=== PATIENT | female | born 1950 | race Caucasian/White ===

== ENCOUNTER 2017-01-03 11:49 | Emergency (ER) | payer BC ==
--- NOTE | 2017-01-03 12:18 | ERPHSYRPT ---
- History of Present Illness Time Seen by Provider: 01/03/17 12:10 Historian: patient Exam Limitations: no limitations Patient Subjective Stated Complaint: pt arrived from [facility]. nurse advised she is concernred pt may have an incarcerated bowel due to a hernia. pt states she only has abdominal pain upon palpation and straining to have a bm. Triage Nursing Assessment: pt pink, warm, dry. abdomen obese tender to touch. pt afebrile. bowel sounds present in all 4 quads. hypoactive. Physician History: 66-year-old white female arrives with complaint of unable to have a bowel movement for several days. She states she's been constipated for several days. Patient having periumbilical tenderness. Patient states having problems having bowel movements for about 2-3 weeks. No vomiting. Patient was seen by a nurse practitioner at [facility] and felt to have lobe possible entrapped hernia. Past medical history patient denies. Past surgical history patient denies. Patient had a small fat filled hernia in the periumbilical region on CT scan one year ago. Timing/Duration: day(s) (2-3 days) Activities at Onset: none Quality: cramping Abdominal Pain Onset Location: periumbilical Pain Radiation: no radiation Severity of Pain-Max: moderate Severity of Pain-Current: moderate Modifying Factors: Improves With: nothing Associated Symptoms: other (1 complex with constipati), No back, No chest pain, No diaphoresis, No diarrhea, No fever/chills, No fatigue, No headache, No heartburn, No loss of appetite, No nausea, No neck pain, No rash, No shortness of breath, No syncope, No vomiting, No weakness Previous symptoms: other (patient seen at [facility] today) Allergies/Adverse Reactions: No Known Drug Allergies Allergy (Unverified 01/03/17 12:07) Home Medications: No Reportable Medications [No Reported Medications] 01/03/17 [History] Hx Tetanus, Diphtheria Vaccination/Date Given: Yes (unknown) Hx Influenza Vaccination/Date Given: No Hx Pneumococcal Vaccination/Date Given: No Immunizations Up to Date: Yes - Review of Systems Constitutional: No Fever, No Chills Eyes: No Symptoms Ears, Nose, & Throat: No Symptoms Respiratory: No Cough, No Dyspnea Cardiac: No Chest Pain, No Edema, No Syncope Abdominal/Gastrointestinal: Abdominal Pain, Constipation, No Nausea, No Vomiting , No Diarrhea, No Hematemesis, No Hematochezia, No Melena, No Dysphagia, No Appetite Changes Genitourinary Symptoms: No Dysuria Musculoskeletal: No Back Pain, No Neck Pain Skin: No Rash Neurological: No Dizziness, No Focal Weakness, No Sensory Changes Psychological: No Symptoms Endocrine: No Symptoms All Other Systems: Reviewed and Negative - Past Medical History Pertinent Past Medical History: No - Past Surgical History Past Surgical History: No - Social History Smoking Status: Never smoker Exposure to second hand smoke: No Drug Use: none Patient Lives Alone: No - Nursing Vital Signs Nursing Vital Signs: Initial Vital Signs Temperature 98.6 F 01/03/17 12:01 Pulse Rate 86 01/03/17 12:01 Respiratory Rate 18 01/03/17 12:01 Blood Pressure 162/74 01/03/17 12:01 O2 Sat by Pulse Oximetry 100 01/03/17 12:01 Pain Scale Pain Intensity 0 - Physical Exam General Appearance: no apparent distress, alert Eye Exam: PERRL/EOMI, eyes nml inspection Ears, Nose, Throat Exam: normal ENT inspection, pharynx normal, moist mucous membranes Neck Exam: normal inspection, non-tender, supple, full range of motion Respiratory Exam: normal breath sounds, lungs clear, No respiratory distress Cardiovascular Exam: regular rate/rhythm, normal heart sounds Gastrointestinal/Abdomen Exam: soft, normal bowel sounds, tenderness (minimal periumbilical tenderness) Back Exam: normal inspection, normal range of motion, No CVA tenderness, No vertebral tenderness Extremity Exam: normal inspection, normal range of motion, pelvis stable Neurologic Exam: alert, oriented x 3, cooperative, normal mood/affect, nml cerebellar function, sensation nml, No motor deficits Skin Exam: normal color, warm, dry SpO2 Interpretation: normal (100%) SpO2: 100 Oxygen Delivery: Room Air - Course Nursing assessment & vital signs reviewed: Yes - CT Exams Abdomen/Pelvis CT Interpretation: Discussed w/radiologist (CT of the abdomen and pelvis with contrast: 1. No acute process within the abdomen or pelvis. 2. 2 components of a supra umbilical omental fat ventral hernia. This extends in the midline and to the left of midline. The midline component measures 5.1 cm in diameter and the components extending to the left of midline measures 5.8 cm in diameter. This is larger than that seen on June 29, 2015. Again, no bowel containing ventral hernia or bowel obstruction is seen. 3. Minimal hiatal hernia, several hepatic cysts, hepatic steatosis, cholelithiasis and a right adrenal gland adenoma are again seen representing no significant change from June 29, 2015. 4. No other significant abnormality is seen, specifically, no suspicious colonic findings by CT. Consider colonoscopy if the patient has not had a recent colonoscopy exam. There is mild scattered fecal residue seen) Ordered Tests: Active Orders 24 hr Category Date Time Status ABDOMEN AND PELVIS W CONTRAST [CT] Stat Exams 01/03/17 12:55 Completed AMYLASE Stat Lab 01/03/17 12:26 Completed CBC W DIFF Stat Lab 01/03/17 12:55 Completed CMP Stat Lab 01/03/17 12:27 Completed LIPASE Stat Lab 01/03/17 12:26 Completed Lab/Rad Data: Laboratory Result Diagrams 01/03/17 12:55 01/03/17 12:27 Laboratory Results 01/03/17 01/03/17 01/03/17 Range/Units 12:55 12:27 12:26 WBC 5.0 (4.0-10.5) K/mm3 RBC 5.19 (4.1-5.4) M/mm3 Hgb 14.2 (12.0-16.0) gm/dl Hct 45.2 (35-47) % MCV 87.1 (78-100) fl MCH 27.4 (26-32) pg MCHC 31.4 L (32-36) g/dl RDW 13.2 (11.5-14.0) % Plt Count 200 (150-450) K/mm3 MPV 12.0 H (6-9.5) fl Gran % 58.3 (36.0-66.0) % Lymphocytes % 29.0 (24.0-44.0) % Monocytes % 9.3 (0.0-12.0) % Eosinophils % 2.8 (0.00-5.0) % Basophils % 0.6 (0.0-0.4) % Basophils # 0.03 (0-0.4) Sodium 141 (136-145) mEq/L Potassium 3.9 (3.5-5.1) mEq/L Chloride 104 (98-107) mEq/L Carbon Dioxide 25.9 (21-32) mEq/L Anion Gap 14.6 (5-15) MEQ/L BUN 8 L (9-20) mg/dL Creatinine 0.94 (0.55-1.30) mg/dl Estimated GFR > 60 ML/MIN Glucose 112 H (70-110) MG/DL Calcium 9.7 (8.5-10.1) mg/dL Total Bilirubin 0.70 (0.2-1.0) mg/dL AST 30 (15-37) U/L ALT 32 (12-78) U/L Alkaline Phosphatase 92 (46-116) U/L Serum Total Protein 8.3 H (6.4-8.2) gm/dL Albumin 4.4 (3.4-5.0) g/dL Amylase (25-115) U/L Lipase 131 (73-393) U/L 01/03/ Range/Units 12:26 WBC (4.0-10.5) K/mm3 RBC (4.1-5.4) M/mm3 Hgb (12.0-16.0) gm/dl Hct (35-47) % MCV (78-100) fl MCH (26-32) pg MCHC (32-36) g/dl RDW (11.5-14.0) % Plt Count (150-450) K/mm3 MPV (6-9.5) fl Gran % (36.0-66.0) % Lymphocytes % (24.0-44.0) % Monocytes % (0.0-12.0) % Eosinophils % (0.00-5.0) % Basophils % (0.0-0.4) % Basophils # (0-0.4) Sodium (136-145) mEq/L Potassium (3.5-5.1) mEq/L Chloride (98-107) mEq/L Carbon Dioxide (21-32) mEq/L Anion Gap (5-15) MEQ/L BUN (9-20) mg/dL Creatinine (0.55-1.30) mg/dl Estimated GFR ML/MIN Glucose (70-110) MG/DL Calcium (8.5-10.1) mg/dL Total Bilirubin (0.2-1.0) mg/dL AST (15-37) U/L ALT (12-78) U/L Alkaline Phosphatase (46-116) U/L Serum Total Protein (6.4-8.2) gm/dL Albumin (3.4-5.0) g/dL Amylase 40 (25-115) U/L Lipase (73-393) U/L - Progress Progress: improved Progress Note: 01/03/17 15:25 This is a 66-year-old white female who had a known small fat-containing umbilical hernia who presented to outpatient clinic with complaints that she had not had a stool for 4 days and had been having constipation off and on for 3 -4 weeks. She has some mild supraumbilical tenderness but really is in no discomfort on arrival. She was noted at the clinic to have a palpable hernia was concerned that she might have a bowel herniation with possible entrapment she was sent to the emergency room on arrival patient's abdomen is distended bowel sounds are positive she has mild supraumbilical tenderness. Because of the patient's obesity I had a hard time palpating her hernia. Patient was sent to CT. Patient had CT with contrast abdomen and pelvis she has a small hiatal hernia which she has had she has PUPIL hepatic cysts with have been seen in the past she also has a large gallstone which is also been seen in the past she does have a hernia superior to the umbilicus however this contains fat and there is no bowel herniation. Patient has no sign of obstruction. Patient has not been vomiting . She is really not tender at this time. She is concerned over constipation I did not feel any hard stool on rectal examination. We will go ahead and place patient on room air laxative and Dulcolax suppositories plenty of fluids with clear fluids only 24-48 hours if abdominal pain patient is to follow-up with her family doctor. - Departure Time of Disposition: 15:32 Departure Disposition: Home Clinical Impression: fat-containing umbilical hernia Constipation Qualifiers: Constipation type: unspecified constipation type Qualified Code(s): K59.00 - Constipation, unspecified Abdominal pain Qualifiers: Abdominal location: periumbilical Qualified Code(s): R10.33 - Periumbilical pain Condition: Stable Critical Care Time: No Referrals: GREER DAVID MD [Primary Care Provider] - Instructions: Abdominal Pain-Adult Additional Instructions: Return home. Plenty of fluids. Clear fluids only 24-48 hours if abdominal pain. Khushi lax 255 g one scoop in 8 ounces of water orally daily. Dulcolax suppository one rectally 48 hours as needed for no stool in 48 hours. Follow-up with your family doctor. Return for acute distress or for severe symptoms.
[2017-01-03 12:52] LABS: ALBUMIN 4.4 g/dL (3.4-5.0); ALKALINE PHOSPHATASE 92 U/L (46-116); ANION GAP 14.6 MEQ/L (5-15); BLOOD UREA NITROGEN 8 mg/dL (9-20); CHLORIDE 104 mEq/L (98-107); Carbon Dioxide 25.9 mEq/L (21-32); Glucose 112 MG/DL (70-110); Potassium 3.9 mEq/L (3.5-5.1); SGOT/AST 30 U/L (15-37); SGPT/ALT 32 U/L (12-78); SODIUM 141 mEq/L (136-145); Total Protein 8.3 gm/dL (6.4-8.2)
[2017-01-03 12:59] LABS: BASOPHIL % 0.6 % (0.0-0.4); Eosinophil % 2.8 % (0.00-5.0); Granulocytes % 58.3 % (36.0-66.0); Mean Cell Volume 87.1 fl (78-100); Mean Corpuscular Hemoglobin 27.4 pg (26-32); Monocytes % 9.3 % (0.0-12.0); Platelet Count 200 K/mm3 (150-450); Red Blood Count 5.19 M/mm3 (4.1-5.4); Red Cell Distribution Width 13.2 % (11.5-14.0)
[2017-01-03 15:32] VITALS: O2SAT 100
[2017-01-03 15:38] VITALS: BP 130/70; PULSE 86
--- NOTE | 2017-01-03 15:54 | XRAY ---
CT of the abdomen and pelvis with IV contrast from 01/03/2017. CTDI: 23.68 Comparison: CT of the abdomen and pelvis without IV contrast from 06/29/2015. Indication: Patient complains of difficulty with defecation and painful defecation times years, but worse in past 3 weeks. Technique: Post-IV contrast axial images were obtained through the abdomen and pelvis during automated injection of 80 cc of Isovue-370 IV contrast material. Reconstructed coronal and sagittal images were created and reviewed. No oral contrast was given. Findings: The lung bases reveal minimal posterior dependent atelectatic changes. Hepatic steatosis is again evident. I also note at least 4 hepatic cysts, the largest within the left lobe measuring 5.0 cm in diameter. The next largest is seen at the lateral aspect of the dome of the right lobe and measures 3.7 cm in diameter. The other 2 are quite small. No intrahepatic biliary duct distention is seen. The gallbladder appears of unremarkable size and reveals no evidence of wall thickening. A prominent gallstone measuring at least 2.3 cm in diameter is seen within the gallbladder representing no change. The spleen appears unremarkable. There is a small stable splenule adjacent to the anterior medial aspect of the lower portion of the spleen representing no change. The pancreas is normal. The left adrenal gland appears unremarkable. There is an oval-shaped low-attenuation lesion within the projection of the right adrenal gland measuring 2.3 cm x 2.0 cm which is essentially unchanged and measures +14.5 Hounsfield units. It is likely a this represents an adrenal adenoma. The kidneys reveal no suspicious mass, calculi, or hydronephrosis. Both kidneys function on the delay images. The abdominal aorta reveals mild atherosclerotic vascular calcification. No abdominal aortic aneurysm or abnormal retroperitoneal lymphadenopathy is seen. No free intraperitoneal air is seen. I believe there is a minimal sliding hiatal hernia. There is also a supraumbilical fat-containing hernia just above the umbilicus extending more to the left of midline. I believe there are 2 components of this omental fat ventral hernia. There is no bowel containing hernia or evidence of bowel obstruction. There is no evidence of appendicitis within the right lower quadrant. The remainder the bowel appears essentially unremarkable. Only minimal stool is seen within the distal rectosigmoid colon. A mild amount of scattered colonic stool is seen within the ascending colon and transverse colon. Again, no bowel distention or obstruction is seen. There is no free intraperitoneal fluid within the pelvis. The uterus is anteflexed and appears unremarkable. The ovaries and remainder of the pelvic adnexa appear unremarkable. No enlarged pelvic lymph nodes are seen. A few scattered calcified phleboliths are noted. The urinary bladder appears grossly unremarkable. No acute fracture or aggressive bone lesion is seen within the skeleton. Impression: 1. I see no acute process within the abdomen or pelvis. 2. There appear to be 2 components of a supraumbilical omental fat ventral hernia. This extends in the midline and to the left of midline. The midline component measures 5.1 cm in diameter and the components extending to the left of midline measures 5.8 cm in diameter. This is larger than that seen on 06/29/2015. Again, no bowel containing ventral hernia or bowel obstruction is seen. 3. Minimal hiatal hernia, several hepatic cysts, hepatic steatosis, cholelithiasis, and a probable right adrenal gland adenoma are again seen representing no significant change from 06/29/2015. 4. No other significant abnormality is seen. Specifically, I detect no suspicious colonic finding by CT. Consider further evaluation with colonoscopy if the patient has not had a recent colonoscopy exam. There is mild scattered fecal residue seen.
== END 2017-01-03 15:45 | disposition home or self-care (01) ==
LOC: EDBD 11:49 → ED 11:49
DX: K59.00 Constipation, unspecified (principal); R10.33 Periumbilical pain; K42.9 Umbilical hernia without obstruction or gangrene; R10.9 Unspecified abdominal pain
CPT/HCPCS: 36000; 36415; 74177; 80053; 82150; 83690; 85025; 99284

== ENCOUNTER 2017-05-24 08:26 | Day surgery (SDC) | payer BC ==
--- NOTE | 2017-05-22 15:11 | HP ---
DATE OF SURGERY: 05/24/2017 ADMISSION DIAGNOSIS: Anemia possibly GI. ANTICIPATED PROCEDURE: EGD and colonoscopy. HISTORY OF PRESENT ILLNESS: The patient does have a low platelet count also. She presents for both upper and lower endoscopic examination. PAST MEDICAL HISTORY: ALLERGIES: NONE. MEDICATIONS: None. PAST SURGICAL HISTORY: None. SOCIAL HISTORY: Negative. FAMILY HISTORY: Negative. REVIEW OF SYSTEMS: Negative. PHYSICAL EXAMINATION: VITAL SIGNS: Normal. CHEST: Clear. COR: Regular. ABDOMEN: No palpable organomegaly or mass. IMPRESSION: Anemia etiology possibly GI although she does have a low PLT count. PLAN: EGD and colonoscopy.
[~2017-05-24 08:26] MED LIST: Lactated Ringers 1,000 ML IV SCH
[2017-05-24] MEDS ORDERED: Versed 2 MG/2 ML Injection IV ONE (08:27)
[2017-05-24] MEDS ORDERED: DIPRIVAN 200 MG/20 ML IV ONE (08:27)
[2017-05-24] MEDS ORDERED: Lactated Ringers 1,000 ML IV ONE (08:48)
[2017-05-24 12:31] VITALS: O2SAT 98
[2017-05-24 14:10] VITALS: BP 137/77; PULSE 76
--- NOTE | 2017-05-24 15:25 | OP ---
SURGERY DATE/TIME: 05/24/2017 1123 PREOPERATIVE DIAGNOSIS: Anemia, previous history of polyps, abdominal cramping and bloating. POSTOPERATIVE DIAGNOSIS: Anemia, previous history of polyps, abdominal cramping and bloating. PROCEDURES: 1) EGD. 2) Colonoscopy. SURGEON: Mike Garcia M.D. ANESTHESIA: Versed and Demerol. COMPLICATIONS: None. CONDITION: Stable. INDICATION: The patient has anemia possibly GI. She has not had any recent evaluations. She has had polyps in the past on lower endoscopic exams. DESCRIPTION OF PROCEDURE: Taken to endoscopy. Left lateral decubitus position. MAC sedation provided. She is morbidly obese and she does have sleep apnea. Upper scope there was grade III esophagitis at the gastroesophageal junction. It did leak some with being rubbed by the scope. The fundus, body, antrum, pylorus, duodenal bulb, second portion satisfactory. The scope withdrawn and looped upon itself. Stomach not holding air well. Very hard to define. I think she clearly had some hiatal hernia. On withdrawal of the scope there was bleeding at the gastroesophageal junction. There was no tumor. There was no Galvan's but it was certainly irritated. I think she has wide open reflux. Scope withdrawn. Anal digital examination satisfactory. The scope advanced. The cecum, ileocecal valve, base of the cecum, appendiceal orifice normal. Ascending, hepatic, transverse, splenic, descending, sigmoid, rectum. Upper rectum a 1 cm polyps was taken with hot biopsy forceps to extinction. There was one large external hemorrhoid. The patient tolerated the procedure satisfactorily. ADDENDUM: I had celine discussion with the in the waiting room. He states that her stools have been riveting at times and at times they are totally loose but she still has the hard time going. She has taken stool softeners for seven years and it just seems like it keeps getting worse even despite having loose stool. She has a hard time getting it going. I found nothing particular. Her colon was not redundant and it was not of abnormal diameter. There was no significant diverticulosis. There was very minimal spasm in the sigmoid and her length of the colon was totally normal despite her significant morbid obesity. PLAN: We will readjust her medications when she comes back for polyp report in the office.
== END 2017-05-24 13:05 | disposition home or self-care (01) ==
LOC: SDC 08:26
PROVIDERS: ATTEND Surgery
PROC: 0DJ08ZZ Inspection of Upper Intestinal Tract, Via Natural or Artificial Opening Endoscopic (ICD-10-PCS; principal; 2017-05-24)
PROC: 0DBP8ZX Excision of Rectum, Via Natural or Artificial Opening Endoscopic, Diagnostic (ICD-10-PCS; 2017-05-24)
DX: D64.9 Anemia, unspecified (principal); Z86.010 Personal history of colon polyps; R14.0 Abdominal distension (gaseous); K20.9 Esophagitis, unspecified; E66.01 Morbid (severe) obesity due to excess calories; G47.30 Sleep apnea, unspecified
CPT/HCPCS: J2250; J2704